=== PATIENT | male | born 1945 | race Caucasian/White ===

== ENCOUNTER 2017-07-28 18:01 | Inpatient (IN) | payer OTHER, MEDICAID ==
[~2017-07-28] VITALS: Ht 175.3 cm; Wt 85.3 kg
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
[2017-07-28 18:46] LABS: BASOPHILS # (AUTO) 0.4 /CMM (0.0-0.2); BASOPHILS % (AUTO) 3.3 % (0.0-2.0); EOSINOPHILS # (AUTO) 0.3 /CMM (0.0-0.7); EOSINOPHILS % (AUTO) 2.4 % (0.0-6.0); HEMATOCRIT 46 % (39-51); HEMOGLOBIN 15.6 g/dL (13.5-17.5); LYMPHOCYTES # (AUTO) 1.5 /CMM (0.8-4.8); LYMPHOCYTES % (AUTO) 13.3 % (20.0-44.0); MEAN CORPUSCULAR HEMOGLOBIN 31 PG (26.0-33.0); MEAN CORPUSCULAR HGB CONC 34 g/dl (31.0-36.0); MEAN CORPUSCULAR VOLUME 90 fL (80-96); MONOCYTES # (AUTO) 0.9 /CMM (0.1-1.30); MONOCYTES % (AUTO) 8.2 % (2.0-12.0); NEUTROPHILS # (AUTO) 8.4 /CMM (1.8-8.9); NEUTROPHILS % (AUTO) 72.8 % (43.0-81.0); PLATELET COUNT (AUTO) 286 /CMM (150-450); RDW COEFFICIENT OF VARIATION 12.3 (11.5-15.0); RED BLOOD CELL COUNT(AUTO) 5.11 MIL/uL (4.5-6.0); WHITE BLOOD COUNT (AUTO) 11.5 K/uL (4.3-11.0)
[2017-07-28] MEDS ORDERED: HALOPERIDOL LACTATE INJ 5 MG/ML VIAL ONE (18:48)
[2017-07-28 18:54] LABS: CALCIUM, SERUM 8.8 mg/dL (8.5-10.1); CARBON DIOXIDE 25 mmol/L (21-32); CHLORIDE 101 mmol/L (98-107); GLUCOSE 113 mg/dL (74-106); POTASSIUM 3.8 mmol/L (3.5-5.1); SODIUM SERUM 136 mmol/L (136-145); UREA NITROGEN, BLOOD 21 mg/dL (7-18)
[2017-07-28 18:54] LABS: APPEARANCE,URINE Clear (CLEAR); BILIRUBIN,URINE Negative (NEGATIVE); BLOOD, URINE Trace-intact Ery/uL (NEGATIVE); COLOR,URINE Yellow (YELLOW); KETONES,URINE Trace (NEGATIVE); LEUKOCYTE ESTERASE ,URINE Negative (NEGATIVE); NITRITE, URINE Positive (NEGATIVE); PH,URINE 5.5 (5.0-8.0); PROTEIN,URINE 30 mg/dl (NEGATIVE); UGLUCOSE Negative (NEGATIVE)
[2017-07-28 19:00] LABS: ALANINE AMINOTRANSFERASE 68 U/L (12-78); ALBUMIN 3.7 g/dL (3.4-5.0); ALKALINE PHOSPHATASE 55 U/L (46-116); ASPARTATE AMINOTRANSFERASE 43 U/L (15-37); BILIRUBIN,DIRECT 0.5 mg/dL (0.0-0.2); BILIRUBIN,TOTAL 1.7 mg/dL (0.2-1.0); TOTAL PROTEIN, SERUM 6.9 g/dL (6.4-8.2)
[2017-07-28] MEDS ORDERED: HALOPERIDOL LACTATE INJ 5 MG/ML VIAL IM ONE (19:00)
[2017-07-28 19:01] LABS: ALCOHOL, BLOOD < 3 mg/dL (0-0)
--- NOTE | 2017-07-28 19:03 | NUR ---
PT NOTED WITH "WORD SALAD". URINE SAMPLE OBTAINED, SENT.
--- NOTE | 2017-07-28 19:13 | NUR ---
PT NOT READY FOR CT SCAN, ER WILL CALL WHEN READY.
[2017-07-28 19:43] LABS: RBC,URINE 0-2 /HPF (0-2); WBC,URINE 0-2 /HPF (0-3)
[2017-07-28 19:46] LABS: BACTERIA,URINE Moderate /HPF (None Seen); SQUAMOUS EPITHELIAL CELL,UR Few /HPF (None Seen)
[2017-07-28 19:47] LABS: MUCUS,URINE Few /LPF (None Seen)
--- NOTE | 2017-07-28 20:00 | NUR ---
CLEANED PT, NOTED WITH POOP ALL OVER.
[2017-07-28] MEDS ORDERED: LORAZEPAM INJ 2 MG/ML VIAL IVP ONE (20:30)
[2017-07-28] MEDS ORDERED: LORAZEPAM INJ 2 MG/ML VIAL ONE (20:39)
--- NOTE | 2017-07-28 20:40 | NUR ---
NOTED BUE HARD STICK, SCARRED. IV ACCESS STARTED ON Brigida PLASCENCIA MD AWARE. MEDICATED ORDERED
--- NOTE | 2017-07-28 21:00 | NUR ---
PT TAKEN TO CT.
--- NOTE | 2017-07-28 22:27 | NUR ---
CALLED ART FOR EVAL
--- NOTE | 2017-07-28 23:54 | NUR ---
Patient is resting comfortably in bed with eyes closed. Easily aroused. VSS
--- NOTE | 2017-07-28 23:56 | NUR ---
REPORT GIVEN TO LARRY CALLAWAY FOR DEEPTI.
--- NOTE | 2017-07-29 00:03 | NUR ---
RECEIVED REPORT FROM DANISH CALLAWAY FOR DEEPTI
--- NOTE | 2017-07-29 00:15 | NUR ---
REPORT GIVEN TO NILTON HANSEN FOR DEEPTI.
--- NOTE | 2017-07-29 00:30 | NUR ---
pt removed iv. Catheter intact and site benign. Pressure and 4x4 applied to site. No bleeding noted.
--- NOTE | 2017-07-29 00:50 | NUR ---
CALLED ART AGAIN FOR EVAL HE STATES LESS THAN 30 MINUTE ETA
--- NOTE | 2017-07-29 01:36 | NUR ---
Art Capilla, STRAIGHT TOOTH GEAR GENERATOR OPERATOR, at bedside to evaluate patient.
--- NOTE | 2017-07-29 02:55 | NUR ---
PER ART, BUSINESS OFFICE SPECIALIST PT PLACED ON 5150 HOLD.
--- NOTE | 2017-07-29 02:58 | NUR ---
PT ASSIGNED TO [facility] 215-A
[2017-07-29] MEDS ORDERED: NICO1PAT10 TP (03:08)
[2017-07-29] MEDS ORDERED: CARV25TA PO (03:08)
[2017-07-29] MEDS ORDERED: GABA600T PO (03:08)
[2017-07-29] MEDS ORDERED: BUSP10TA35 PO (03:08)
[2017-07-29] MEDS ORDERED: CLON0.5T PO (03:08)
[2017-07-29] MEDS ORDERED: NIFE60TA2 PO (03:08)
[2017-07-29] MEDS ORDERED: ATOR40TA PO (03:08)
--- NOTE | 2017-07-29 03:13 | NUR ---
CALLED DR. FERNANDO MD PAGED. WAITING FOR CALL BACK
[2017-07-29 03:55] VITALS: BP 144/64
[2017-07-29] MEDS ORDERED: TEMAZEPAM 7.5 MG CAPSULE PO PRN (04:00)
[2017-07-29] MEDS ORDERED: MAGNESIUM HYDROXIDE 30 ML UDC PO PRN (04:00)
[2017-07-29] MEDS ORDERED: ACETAMINOPHEN 325 MG TABLET PO PRN ×2 (04:00→09:30)
[2017-07-29] MEDS ORDERED: MAG HYDROX/AL HYDROX/SIMETH 30 ML UDC PO PRN (04:00)
[2017-07-29] MEDS ORDERED: GABAPENTIN 300 MG CAPSULE PO SCH (05:00)
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
[2017-07-29 06:54] LABS: CHOLESTEROL 113 mg/dL (<200); HDL CHOLESTEROL 44 mg/dL (40-60); LDL 54 mg/dL (0-99); TRIGLYCERIDES 114 mg/dL (30-150)
[2017-07-29] MEDS ORDERED: GABA-534 PO (08:43)
[2017-07-29] MEDS ORDERED: ACET-868 PO (08:43)
[2017-07-29] MEDS ORDERED: ESCI5TAB PO (08:43)
[2017-07-29] MEDS ORDERED: BISA10SU8 RC (08:43)
[2017-07-29] MEDS ORDERED: QUET100T PO (08:43)
[2017-07-29] MEDS ORDERED: TRAZ-144 PO (08:43)
[2017-07-29 09:00] VITALS: BP 161/85
--- NOTE | 2017-07-29 09:11 | NUR ---
GPS RN: CALLED DR. KING, RECONCILED MEDS, FAXED TO THE PHARMACY AND CALLED THE PHARMACY TO F/U AND EXPEDITE PATIENT'S MEDS, DUE TO BP 161/85, HR 101, SPOKE WITH PHARMACIST PRICILLA.
[2017-07-29] MEDS ORDERED: BISACODYL SUPP (10 MG) 10 MG/SUPP.RECT SUPP.RECT RC PRN (09:30)
[2017-07-29] MEDS: CARVEDILOL 12.5 MG TABLET PO SCH ×2 (09:34→21:26)
[2017-07-29] MEDS: NIFEdipine XL 60 MG TAB PO SCH (10:02)
--- NOTE | 2017-07-29 10:59 | NUR ---
UR REVIEW: DELISA faxed over clinicals to Paul with [facility], to fax# [phone], AUTHORIZATION#[id number]. DELISA then called Paul and left a voicemail confirming that she faxed over clinicals and informed Paul that the psychiatric History and Physical was unavailable. Once it is available, social contact worker will fax it over as well.
--- NOTE | 2017-07-29 11:59 | NUR ---
PATIENT IS VERY RESTLESS, SITTING IN THE CONCETTA CHAIR IN THE DINING ROOM, CONSTANTLY MOVING LEGS AND FLAILING ARMS, HARD TO REDIRECT DUE TO CONFUSION AND DISORIENTATION. PROVIDED SNACKS AND OFFERED FLUIDS, TOLERATED WELL. PATIENT IS ALERT, HOWEVER, DISORIENTED AND HARD TO REDIRECT. NO S/S OF PHYSICAL DISTRESS OR PAIN. SAFETY PRECAUTIONS OBSERVED AT ALL TIMES, CONTINUE TO MONITOR THE PATIENT.
[2017-07-29] MEDS: GABAPENTIN 300 MG CAPSULE PO SCH ×3 (12:50→21:25)
[2017-07-29] MEDS: busPIRone 5 MG TABLET PO SCH ×2 (14:30→16:51)
[2017-07-29] MEDS: Z GUARD REMEDY 2 OZ OINT TP SCH (14:58)
[2017-07-29 16:07] VITALS: BP 165/87
--- NOTE | 2017-07-29 16:16 | NUR ---
PATIENT IS GETTING OUT OF THE BED, UNSTEADY, BUMPING THE FURNITURE, VERY CONFUSED AND RESTLESS, UNABLE TO REDIRECT. BED ALARM IS ON, BED IN A LOW POSITION AND LOCKED, SR ARE UP X3 FOR SAFETY. CALLED DR. KING AND OBTAINED AN ORDER FOR 1:1 SITTER. CHAINSTITCH BINDER NOTIFIED. WILL CONTINUE TO MONITOR THE PATIENT.
[2017-07-29] MEDS: QUETIAPINE FUMARATE 100 MG TABLET PO SCH (16:51)
[2017-07-29] MEDS: ATORVASTATIN 10 MG TABLET PO SCH (17:04)
[2017-07-29] MEDS ORDERED: ATORVASTATIN 40 MG TABLET PO SCH (18:00)
[2017-07-29 18:41] VITALS: BP 141/75
[2017-07-29 20:22] VITALS: BP 150/83
[2017-07-29] MEDS: TRAZODONE 50 MG TABLET PO SCH (21:25)
[2017-07-30] MEDS: LORAZEPAM 0.5 MG TABLET PO PRN (02:08)
[2017-07-30 08:06] VITALS: BP 147/71
[2017-07-30] MEDS: busPIRone 5 MG TABLET PO SCH ×2 (09:13→17:28)
[2017-07-30] MEDS: NIFEdipine XL 60 MG TAB PO SCH (09:13)
[2017-07-30] MEDS: QUETIAPINE FUMARATE 100 MG TABLET PO SCH ×2 (09:13→17:28)
[2017-07-30] MEDS: GABAPENTIN 300 MG CAPSULE PO SCH ×4 (09:13→21:00)
[2017-07-30] MEDS: ESCITALOPRAM OXALATE (10 MG) 10 MG TABLET PO SCH (09:13)
[2017-07-30] MEDS: ATORVASTATIN 10 MG TABLET PO SCH (09:13)
[2017-07-30] MEDS: Z GUARD REMEDY 2 OZ OINT TP SCH (09:14)
[2017-07-30] MEDS: CARVEDILOL 12.5 MG TABLET PO SCH ×2 (09:17→21:00)
--- NOTE | 2017-07-30 10:50 | NUR ---
SW was contacted by pt's tikpht-hx-hry, Haydee Toscano [phone]. Haydee stated that pt's brother is his DPOA. Haydee stated that they believed [facility] but stated that any facility deemed suitable by doctors was okay with the family and with DPOA. Haydee stated that they want to sign a DNR. DELISA stated that she will look into it. DELISA consulted with nurses and obtained the form. DELISA called Haydee and reached her voicemail. DELISA left voicemail stating that she had some questions for the family and had info about the DNR. DELISA urged Haydee to call her back. DELISA will follow up with family.
--- NOTE | 2017-07-30 10:55 | NUR ---
SW attempted to conducted assessment but patient was nonsensical. SW attempted to reach family, , but received their voicemail. SW requested a call back. SW attempted to conduct the substance use assessment but was unable to do so given patient's low level of function. DELISA will make a second attempt later in the day or on Wednesday, as was advised by her supervisor meter shop.
--- NOTE | 2017-07-30 11:32 | NUR ---
WOUND CARE CONSULT PATIENT SEEN AND SKIN INTEGRITY ASSESSMENT DONE. PATIENT NOW WITH SITTER AT THE BEDSIDE FOR SAFETY, PATIENT CONFUSED. PATIENT WITH CURRENT ROMAN AT 19, ABLE TO MOVE ALL EXTREMITIES. RECOMMENDATIONS MADE FOR SKIN CARE AND FOR TREATMENT, MD IN AGREEMENT WITH TREATMENT PLAN WELL CAREPLAN. ALL DISCUSSED WITH NURSING AT THE BEDSIDE. Addendum: 07/30/17 at 1135 by JEREMY REYES WNDNU Amended: Links added.
--- NOTE | 2017-07-30 11:35 | NUR ---
UR REVIEW: DELISA faxed over psychiatric History and Physical to Paul with [facility], to fax# [phone], AUTHORIZATION#[id number]. DELISA called Paul and left a message to confirm the fax and asked Paul to call her back as DELISA had a question regarding approval.
[2017-07-30] MEDS: NEOMY SULF/BACITRAC ZN/POLY 15 GM TUBE TP SCH (12:43)
--- NOTE | 2017-07-30 12:43 | NUR ---
DELISA contacted Apoorva, an zoning administrator at [facility] [phone] who informed social welfare administrator that the facility will absolutely not be taking back patient due to his aggressive behavior. DELISA called Paul with [facility], [insurance underwriting assistant] who stated that there are a couple of other facilities he will look into for potential placement that will be approved by the insurance. DELISA will follow up with Paul on Wednesday.
--- NOTE | 2017-07-30 12:52 | NUR ---
PER PATIENT'S BROTHER (DPOA) PATIENT IS EVERYDAY SMOKER, ("CHAIN SMOKER"). NICOTINE PATCH ORDERED.
[2017-07-30] MEDS: NICOTINE PATCH (21MG) 21 MG PATCH.TD24 TD SCH (14:01)
--- NOTE | 2017-07-30 14:14 | NUR ---
DELISA spoke with patient's clfxdg-fz-car and with patient's brother, Kee, and informed them that it will be best to sign the POLST form in person. Both of them agreed and stated that they will be by around 6-8pm to sign the form and to visit with patient. DELISA explained the insurance policy to Kee and informed him that the SNF has to be approved by insurance because it is an HMO.
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
--- NOTE | 2017-07-30 15:02 | NUR ---
PLEASE NOTE- NO DPOA: Upon having a lengthy conversation with the patient's brother, it became clear that brother is not DPOA. Brother stated that he had no court documentation and stated that he wasn't sure if he was DPOA. Brother stated that he was the "next of kin" and assumed that it made him the DPOA. Dyno Technician explained that this was not the case. Addendum: 07/30/17 at 1504 by VIOLETTA HERCULES There is confusion in patient's family about decision-making and facilities. DELISA will follow up and provide them with updates.
--- NOTE | 2017-07-30 15:46 | NUR ---
DELISA spoke with Paul with [facility], who stated that he will fax over a list of contracted SNFs to social work program coordinator by Wednesday. Dr. Senior also called social work program coordinator and informed her that he heard form [place] insurance and stated that he wrote an order for the SNF [acute care]. DELISA will follow up and will arrange discharge for contracted SNF facilities.
[2017-07-30 16:00] VITALS: BP 119/67
--- NOTE | 2017-07-30 16:18 | NUR ---
RN-CO: AVE (DELISA) MADE AWARE REGARDING DR MICHEL'S ORDER TO INITIATE DISCHARGE PLANNING OF PATIENT TO SNF.
--- NOTE | 2017-07-30 16:51 | NUR ---
DELISA faxed over inquiry to [facility], Address: [address] [place], [place] [address]Rumvn: to admissions. Fax number: [phone]. DELISA Orozco will follow up on Wednesday.
--- NOTE | 2017-07-30 16:55 | NUR ---
UR REVIEW: DELISA faxed over progress notes to Paul with [facility], to fax# [phone], AUTHORIZATION#[id number]
[2017-07-30 20:00] VITALS: BP 125/63
[2017-07-30] MEDS: TRAZODONE 50 MG TABLET PO SCH (22:00)
--- NOTE | 2017-07-31 07:22 | NUR ---
refused meds last night,slept most of night
[2017-07-31 08:00] VITALS: BP 139/55
[2017-07-31] MEDS: NICOTINE PATCH (21MG) 21 MG PATCH.TD24 TD SCH (10:05)
[2017-07-31] MEDS: GABAPENTIN 300 MG CAPSULE PO SCH ×4 (10:05→21:45)
[2017-07-31] MEDS: busPIRone 5 MG TABLET PO SCH ×2 (10:05→17:57)
[2017-07-31] MEDS: CARVEDILOL 12.5 MG TABLET PO SCH ×2 (10:06→21:47)
[2017-07-31] MEDS: ATORVASTATIN 10 MG TABLET PO SCH (10:06)
[2017-07-31] MEDS: ESCITALOPRAM OXALATE (10 MG) 10 MG TABLET PO SCH (10:06)
[2017-07-31] MEDS: QUETIAPINE FUMARATE 100 MG TABLET PO SCH ×2 (10:06→17:57)
[2017-07-31] MEDS: NIFEdipine XL 60 MG TAB PO SCH (10:11)
[2017-07-31] MEDS: Z GUARD REMEDY 2 OZ OINT TP SCH (10:15)
[2017-07-31] MEDS: NEOMY SULF/BACITRAC ZN/POLY 15 GM TUBE TP SCH (10:17)
[2017-07-31 16:00] VITALS: BP 124/54
[2017-07-31 20:00] VITALS: BP 142/70
[2017-07-31] MEDS: TRAZODONE 50 MG TABLET PO SCH (21:45)
--- NOTE | 2017-07-31 23:51 | NUR ---
Pt has been confused & fragmented but compliant with care w/o any promptings.
[2017-08-01 08:02] VITALS: BP 130/71
[2017-08-01] MEDS: NIFEdipine XL 60 MG TAB PO SCH (08:04)
[2017-08-01] MEDS: busPIRone 5 MG TABLET PO SCH ×2 (08:04→16:47)
[2017-08-01] MEDS: CARVEDILOL 12.5 MG TABLET PO SCH ×2 (08:05→21:27)
[2017-08-01] MEDS: ESCITALOPRAM OXALATE (10 MG) 10 MG TABLET PO SCH (08:05)
[2017-08-01] MEDS: ATORVASTATIN 10 MG TABLET PO SCH (08:05)
[2017-08-01] MEDS: GABAPENTIN 300 MG CAPSULE PO SCH ×4 (08:06→21:26)
[2017-08-01] MEDS: NICOTINE PATCH (21MG) 21 MG PATCH.TD24 TD SCH (08:08)
[2017-08-01] MEDS: QUETIAPINE FUMARATE 100 MG TABLET PO SCH ×2 (08:08→16:46)
[2017-08-01] MEDS: Z GUARD REMEDY 2 OZ OINT TP SCH (08:17)
[2017-08-01] MEDS: NEOMY SULF/BACITRAC ZN/POLY 15 GM TUBE TP SCH (08:17)
[2017-08-01 12:43] LABS: ALBUMIN 3.7 g/dL (3.4-5.0); BILIRUBIN,DIRECT 0.3 mg/dL (0.0-0.2); BILIRUBIN,TOTAL 1.6 mg/dL (0.2-1.0); TOTAL PROTEIN, SERUM 7.5 g/dL (6.4-8.2)
[2017-08-01 16:00] VITALS: BP 129/59
[2017-08-01 19:53] VITALS: BP 143/74
--- NOTE | 2017-08-01 20:00 | NUR ---
Resting quietly in bed no distress noted or voiced.
[2017-08-01] MEDS: TRAZODONE 50 MG TABLET PO SCH (21:26)
[2017-08-01] MEDS: LORAZEPAM 0.5 MG TABLET PO PRN (21:46)
--- NOTE | 2017-08-02 06:45 | NUR ---
refused to allow to take pictures, of skin
[2017-08-02 08:00] VITALS: BP 136/73
[2017-08-02] MEDS: NICOTINE PATCH (21MG) 21 MG PATCH.TD24 TD SCH (08:12)
[2017-08-02] MEDS: CARVEDILOL 12.5 MG TABLET PO SCH ×2 (08:12→21:06)
[2017-08-02] MEDS: QUETIAPINE FUMARATE 100 MG TABLET PO SCH ×2 (08:13→17:01)
[2017-08-02] MEDS: busPIRone 5 MG TABLET PO SCH ×2 (08:13→17:11)
[2017-08-02] MEDS: ATORVASTATIN 10 MG TABLET PO SCH (08:13)
[2017-08-02] MEDS: ESCITALOPRAM OXALATE (10 MG) 10 MG TABLET PO SCH (08:13)
[2017-08-02] MEDS: GABAPENTIN 300 MG CAPSULE PO SCH ×4 (08:13→21:05)
[2017-08-02] MEDS: NIFEdipine XL 60 MG TAB PO SCH (08:15)
[2017-08-02] MEDS: NEOMY SULF/BACITRAC ZN/POLY 15 GM TUBE TP SCH (08:15)
[2017-08-02] MEDS: Z GUARD REMEDY 2 OZ OINT TP SCH (08:39)
--- NOTE | 2017-08-02 12:50 | NUR ---
Open Winder, Pam Hwang spoke to Ken Bro, Supervisor Powdered Sugar from [facility], who stated patient's inquiry was being reviewed and pending a decision. Mr. Bro stated that he would be calling back with a response once he spoke to the lemon picker. Open Winder to follow up.
--- NOTE | 2017-08-02 13:07 | NUR ---
DELISA, received a call from Paul Wang (Insurance) inquiring about an update re: patient. Per his request, inquiry was faxed to him at [phone]. DELISA confirmed with Paul to ensure fax was received.
[2017-08-02 16:00] VITALS: BP 141/76
--- NOTE | 2017-08-02 18:38 | NUR ---
[id number]: GAVE DULCOLAX 10 MG PO DUE TO CONSTIPATION UPON PT REQUEST AND WILL CONTINUE TO MONITOR FOR EFFECTIVENESS OF MEDICATION
[2017-08-02 20:36] VITALS: BP 139/75
[2017-08-02] MEDS: TRAZODONE 50 MG TABLET PO SCH (21:24)
[2017-08-03 08:13] VITALS: BP 129/54
[2017-08-03] MEDS: ATORVASTATIN 10 MG TABLET PO SCH (08:29)
[2017-08-03] MEDS: NICOTINE PATCH (21MG) 21 MG PATCH.TD24 TD SCH (08:29)
[2017-08-03] MEDS: busPIRone 5 MG TABLET PO SCH ×2 (08:30→16:16)
[2017-08-03] MEDS: GABAPENTIN 300 MG CAPSULE PO SCH ×4 (08:31→21:19)
[2017-08-03] MEDS: ESCITALOPRAM OXALATE (10 MG) 10 MG TABLET PO SCH (08:32)
[2017-08-03] MEDS: QUETIAPINE FUMARATE 100 MG TABLET PO SCH ×2 (08:32→16:16)
[2017-08-03] MEDS: NIFEdipine XL 60 MG TAB PO SCH (08:36)
[2017-08-03] MEDS: CARVEDILOL 12.5 MG TABLET PO SCH ×2 (08:37→21:18)
[2017-08-03] MEDS: Z GUARD REMEDY 2 OZ OINT TP SCH (08:40)
[2017-08-03] MEDS: NEOMY SULF/BACITRAC ZN/POLY 15 GM TUBE TP SCH (08:41)
[2017-08-03] MEDS: BOOST PLUS FOOD-CHOCLATE 237 ML BOX PO SCH ×2 (13:17→16:21)
--- NOTE | 2017-08-03 15:27 | NUR ---
DELISA heard from Ken in Admissions from [facility], who informed DELISA that the patient was declined placement at this time. However, Ken stated that the service administrator, Bella, would consider re-evaluating the case and patient if no other placement is found for patient. DELISA will follow up.
--- NOTE | 2017-08-03 15:28 | NUR ---
DELISA faxed over an inquiry to Nurys from Admissions at [facility], , Fax number [phone]. DELISA called and spoke to Nurys, informing her of the inquiry. DELISA will follow up.
--- NOTE | 2017-08-03 15:38 | NUR ---
DELISA returned Daniel Quiroz's [insurance] voicemail regarding patient at [phone]. Art stated that he was with a patient and will call ironworker foreman back to discuss case.
--- NOTE | 2017-08-03 15:55 | NUR ---
UR REVIEW: DELISA faxed over updated clinicals with doctor's order to discharge to SNF to [place] [facility], to fax# [phone], AUTHORIZATION#[id number]
[2017-08-03 15:58] VITALS: BP 161/78
--- NOTE | 2017-08-03 16:23 | NUR ---
DELISA faxed over inquiry to Admissions at [facility], [address] [place], [place] [phone], . DELISA will follow up.
[2017-08-03] MEDS ORDERED: BISACODYL (5 MG) 5 MG TABLET.DR PO ONE (16:30)
--- NOTE | 2017-08-03 19:55 | NUR ---
GPS/RN NOTE: BROTHER VISITS AT HE BEDSIDE
[2017-08-03 20:23] VITALS: BP 132/67
[2017-08-03] MEDS: TRAZODONE 50 MG TABLET PO SCH (21:20)
--- NOTE | 2017-08-03 21:22 | NUR ---
GPS/RN NOTE: PATIENT ASLEEP, TRIED TO WAKE HIM UP, WILL TRY IN THE NEXT HOUR.
[2017-08-04] MEDS: GABAPENTIN 300 MG CAPSULE PO SCH ×4 (08:19→20:23)
[2017-08-04] MEDS: busPIRone 5 MG TABLET PO SCH ×2 (08:19→17:06)
[2017-08-04] MEDS: NICOTINE PATCH (21MG) 21 MG PATCH.TD24 TD SCH (08:19)
[2017-08-04] MEDS: ESCITALOPRAM OXALATE (10 MG) 10 MG TABLET PO SCH (08:19)
[2017-08-04] MEDS: QUETIAPINE FUMARATE 100 MG TABLET PO SCH ×3 (08:19→20:22)
[2017-08-04] MEDS: BOOST PLUS FOOD-CHOCLATE 237 ML BOX PO SCH ×2 (08:20→17:19)
[2017-08-04] MEDS: CARVEDILOL 12.5 MG TABLET PO SCH ×2 (08:20→20:22)
[2017-08-04] MEDS: NEOMY SULF/BACITRAC ZN/POLY 15 GM TUBE TP SCH (08:21)
[2017-08-04] MEDS: Z GUARD REMEDY 2 OZ OINT TP SCH (08:21)
[2017-08-04] MEDS: NIFEdipine XL 60 MG TAB PO SCH (08:22)
[2017-08-04 08:51] VITALS: BP 138/77
[2017-08-04] MEDS: ATORVASTATIN 10 MG TABLET PO SCH (09:18)
--- NOTE | 2017-08-04 10:33 | NUR ---
DELISA called Admissions at [facility], and spoke with Michelle who confirmed that they received the inquiry but stated that [facility] will be the one to call DELISA back. DELISA left detailed contact information.
--- NOTE | 2017-08-04 10:36 | NUR ---
DELISA followed up with Admissions at [facility], [address] [place], [place] [phone] who informed her that there are no beds available anymore and that patient was no accepted.
--- NOTE | 2017-08-04 10:44 | NUR ---
DELISA spoke to the traffic administrator, Bella, from [facility], who informed SW that they will have to come in and physically see the patient before taking him. He stated that he will not be able to do that until next week. DELISA stated that she will continue to follow up with more facilities but will keep in touch.
--- NOTE | 2017-08-04 15:20 | NUR ---
SW attempted twice to get in contact with patient's brother Kee and Kee's Haydee at [phone]. SW left voicemail urging family to call back to discuss discharge plan. SW provided contact information.
--- NOTE | 2017-08-04 15:24 | NUR ---
DELISA followed up with Paul with [facility], who stated that there is a facility that is willing to take the patient, but they are waiting for insurance approval for a sitter. Paul stated that he is working on it and that he will have confirmation soon. Paul stated that they are making progress and will have patient placed by the end of the week. DELISA stated that she is also following up with facilities and that she will touch base with Paul soon.
[2017-08-04 16:47] VITALS: BP 131/68
--- NOTE | 2017-08-04 16:51 | NUR ---
DELISA followed up with Paul and Wandy [covering Paul] from [facility] [phone] multiple times throughout the day. Paul informed DELISA that he is still following up with the facilities. DELISA informed Paul that one of the facilities was a congregated living, which was against doctor's orders for a SNF. DELISA informed Wandy that she was following up with Ani from [facility], . When speaking with Ani, DELISA was informed that they will take patient in for short-term, with as many days as approved by insurance. DELISA then informed pt's family [phone] about this and stressed that options were limited. Family seemed to be confused about insurance companies/facilities so DELISA advised them to get in direct contact with the insurance and stated that she had provided them with contact information before. Family said that they will contact oncology social worker in the morning. DELISA informed Kaylai from [facility] that the patient is a possibility for tomorrow and Ani asked DELISA to confirm in the morning. DELISA will follow up with Nurys Miller and pt's family in the morning and will make arrangements for discharge as necessary.
--- NOTE | 2017-08-04 17:07 | NUR ---
DELISA faxed over two more inquiries. One was for [facility], with fax number [phone]. The other was for [facility] [phone] with fax number [phone]. DELISA will follow up in the morning.
[2017-08-04 20:06] VITALS: BP 157/77
[2017-08-04] MEDS: LORAZEPAM 0.5 MG TABLET PO PRN (20:23)
[2017-08-04] MEDS: TRAZODONE 50 MG TABLET PO SCH (21:08)
[2017-08-05 08:22] VITALS: BP 144/77
[2017-08-05] MEDS: busPIRone 5 MG TABLET PO SCH ×2 (08:35→17:25)
[2017-08-05] MEDS: ESCITALOPRAM OXALATE (10 MG) 10 MG TABLET PO SCH (08:35)
[2017-08-05] MEDS: NICOTINE PATCH (21MG) 21 MG PATCH.TD24 TD SCH (08:35)
[2017-08-05] MEDS: ATORVASTATIN 10 MG TABLET PO SCH (08:36)
[2017-08-05] MEDS: CARVEDILOL 12.5 MG TABLET PO SCH ×2 (08:36→21:00)
[2017-08-05] MEDS: GABAPENTIN 300 MG CAPSULE PO SCH ×4 (08:36→21:00)
[2017-08-05] MEDS: NIFEdipine XL 60 MG TAB PO SCH (08:49)
[2017-08-05] MEDS: NEOMY SULF/BACITRAC ZN/POLY 15 GM TUBE TP SCH (08:49)
[2017-08-05] MEDS: Z GUARD REMEDY 2 OZ OINT TP SCH (08:50)
[2017-08-05] MEDS ORDERED: QUETIAPINE FUMARATE 100 MG TABLET PO ONE (09:00)
--- NOTE | 2017-08-05 09:00 | NUR ---
GPS RN: PER eMAR RECORD, SEROQUEL SCHEDULED FOR 08/05/17 0900 WAS ADMINISTERED ON 08/04/17 AT 2021. THE ORDER IS SEROQUEL 100MG BID. DR. MICHEL NOTIFIED AND OK'D TO ADMINISTER SEROQUEL 100MG AT 0900, ONE TIME ORDER RECEIVED AND CARRIED OUT. PATIENT IS ALERT AWAKE, NOT IN ANY DISTRESS, VS STABLE.
[2017-08-05] MEDS: BOOST PLUS FOOD-CHOCLATE 237 ML BOX PO SCH ×2 (09:04→17:26)
--- NOTE | 2017-08-05 09:14 | NUR ---
DELISA faxed over additional clinicals [PT again, OT, Speech Therapy] to Paul from [facility] [phone]. DELISA then called [facility] who confirmed that he received them and faxed them over to his SNF medical videographer. Paul stated that he would like DELISA to hold off on confirming with [facility] because he would like to check with his medical directors and see if patient can be placed in other SNFs. Paul stated that he would confirm by today and then patient will be good to go to a SNF. DELISA will then inform family and update them.
--- NOTE | 2017-08-05 11:39 | NUR ---
DELISA spoke with patient's nephew, Diogo [phone] who thanked health and social care teacher for all her help. He stated that the family was feeling a little overwhelmed and confused. SW provided updates on patient's status and provided nephew with insurance contact information. SW explained that she can only look at SNFs that are approved by patient's insurance and is therefore limited as to what she can do in terms of placement. Nephew thanked DELISA and stated that he will be in touch.
--- NOTE | 2017-08-05 14:37 | NUR ---
Patient is ready for discharge and DELISA was able to work with Paul from [facility] [phone] to secure a [place]-approved SNF, [facility]. However, patient's nephew [phone] and family, stated that they would like to appeal the discharge. Patient is in contact with her forest supervisor as well as Daniel Quiroz from [place], regarding a letter of denial or possible authorization of more days. Once confirmed and if applicable, DELISA will serve family with letter of denial. In the meantime, DELISA will continue to search for appropriate facilities.
--- NOTE | 2017-08-05 14:41 | NUR ---
Patient's nephew [phone] stated that he does not want uncle in convalescent facility, [facility]. follow up with [facility] [phone] and was informed by admissions that they had misplaced the face sheet. diversified crops farmworker re-faxed the face sheet to fax number [phone].
--- NOTE | 2017-08-05 15:33 | NUR ---
DELISA attempted several times to get in touch with Daniel Quiroz from [facility] [phone]. Daniel Quiroz's voicemail box was full and foster care social worker was unable to leave him a message with the latest update: that the pt's family was appealing the discharge. SW then send a message to Daniel's cellphone informing him that patient's family was appealing the discharge and asked him to fax over a letter of denial to fax number [phone]. die lay out worker informed him that either the letter needs to be sent or more days need to be authorized. DELISA then left a voicemail for Paul from [facility] [phone] asking if he was aware of any information regarding approval or denial of the letter. DELISA will follow up. DELISA then called Helga Zarina, patient's nephew at [phone]. DELISA informed Helga that a letter of denial has to be served and signed by family. DELISA told Helga that, upon supervisor electric motor testing's advisement, the letter cannot be emailed as it may be a breach of confidentiality. DELISA advised Helga to sign the letter in person. DELISA then informed Helga that the family may be financially responsible for the patient's stay which is approximately $1,000/day. Under the advisement of supervisor electric motor testing, DELISA reviewed and edited the letter of denial and will leave it with the charge nurse so that family may receive and sign the letter during visiting hours, 6pm-8pm. If foster care social worker receives the letter of denial directly from the HMO [Daniel Quiroz] then she will leave that letter to be reviewed and signed by family instead. If foster care social worker hears that insurance company approved patient for more days, then foster care social worker will let family know.
--- NOTE | 2017-08-05 15:46 | NUR ---
DELISA heard back from Admissions from [facility] [phone] and was informed that patient was denied because he was considered to be a long-term risk.
--- NOTE | 2017-08-05 15:49 | NUR ---
Please note that patient's family [nephew, brother, lyxfki-qo-goa] stated that they did not want facilities that were too far away [ie [place], [place], [place], [place]], did not want facilities that were convalescent and preferred unlocked units.
[2017-08-05 16:00] VITALS: BP 149/62
--- NOTE | 2017-08-05 17:15 | NUR ---
DELISA called Helga Srinivasan [phone] and informed him that the family needs to file an appeal with [facility] first. Helga stated that they had already done that and informed hospital social worker that he has all of their contact information. DELISA then stated that the family had to come in and sign paperwork [letter of denial and their rights in the appeal]. DELISA left the paperwork with charge nurse, Norbert, and informed Helga of that. Helga state that the family will come by during visiting hours 6pm-8pm to sign the paperwork. DELISA stated that, upon petroleum inspector supervisor's advise, she will wait for [facility] to contact her in the morning and will fax over all necessary documents to them. DELISA reiterated that there is a possibility that the family will be financially responsible starting today.
--- NOTE | 2017-08-05 17:21 | NUR ---
DELISA faxed over inquiries to admissions in [facility], fax number [phone] and [facility] fax number [phone].
[2017-08-05] MEDS: QUETIAPINE FUMARATE 100 MG TABLET PO SCH (17:25)
--- NOTE | 2017-08-05 17:36 | NUR ---
DR. MICHEL GAVE AN ORDER TO D/C HOLD AND D/C TO [facility].
[2017-08-05 20:00] VITALS: BP 158/80
[2017-08-05] MEDS: TRAZODONE 50 MG TABLET PO SCH (21:26)
[2017-08-06 08:00] VITALS: BP 138/63
[2017-08-06] MEDS: NEOMY SULF/BACITRAC ZN/POLY 15 GM TUBE TP SCH (08:39)
[2017-08-06] MEDS: NICOTINE PATCH (21MG) 21 MG PATCH.TD24 TD SCH (08:39)
[2017-08-06] MEDS: GABAPENTIN 300 MG CAPSULE PO SCH ×4 (08:40→21:07)
[2017-08-06] MEDS: ESCITALOPRAM OXALATE (10 MG) 10 MG TABLET PO SCH (08:40)
[2017-08-06] MEDS: QUETIAPINE FUMARATE 100 MG TABLET PO SCH ×2 (08:40→16:02)
[2017-08-06] MEDS: ATORVASTATIN 10 MG TABLET PO SCH (08:40)
[2017-08-06] MEDS: busPIRone 5 MG TABLET PO SCH ×2 (08:40→16:05)
[2017-08-06] MEDS: NIFEdipine XL 60 MG TAB PO SCH (08:41)
[2017-08-06] MEDS: CARVEDILOL 12.5 MG TABLET PO SCH ×2 (08:41→21:08)
[2017-08-06] MEDS: Z GUARD REMEDY 2 OZ OINT TP SCH (08:47)
[2017-08-06] MEDS: BOOST PLUS FOOD-CHOCLATE 237 ML BOX PO SCH ×2 (08:48→16:17)
--- NOTE | 2017-08-06 09:31 | NUR ---
DELISA faxed over required packet to [facility], to fax number [phone]. Please note that the fax machine was unable to send the packet as whole and it was initially sent in four parts. However, DELISA then used another fax machine and was able to send the packet as a whole. DELISA called [facility] and spoke to Alejandra. DELISA informed her that there may be duplicates of the packet. Alejandra stated that she noted it in the case file. DELISA is currently waiting for confirmation of fax to print out. DELISA will follow up in a half hour if no confirmation is printed.
--- NOTE | 2017-08-06 09:50 | NUR ---
DELISA received confirmation that the entire packet was successfully transmitted to [facility] to fax number [phone] regarding - AP. DELISA then called [facility] at their help line [phone] and spoke with Renea. DELISA confirmed that there were a total of 68 pages that were sent over and again stated that there may be duplicates due to a malfunction of the fax machine.
--- NOTE | 2017-08-06 10:14 | NUR ---
DELISA attempted to get in touch with Nataliia Breanna from [facility] [phone]. DELISA left a voicemail stating that she was seeking clarification about a fax that she received from Nataliia in the morning. DELISA urged Nataliia to call her back and left detailed contact information.
--- NOTE | 2017-08-06 10:22 | NUR ---
DELISA faxed over a confirmation of the fax sent to [facility] to Nataliia Carlos from [facility] [phone] at fax number [phone].
--- NOTE | 2017-08-06 10:28 | NUR ---
SW was approached by patient's ofzslc-te-xjm Haydee Dorcas [phone] while in her office. Haydee handed DELISA a letter from the patient's brother addressed to [facility], which aired their grievances and stated demands for patient's discharge. At the advise of her hotel or motel cleaning supervisor, DELISA referred the letter to her. DELISA also placed the letter into the patient's chart.
--- NOTE | 2017-08-06 10:38 | NUR ---
DELISA followed up with Perla in admissions from [facility] [phone] who informed SW that the facility was declining the patient due to behavioral problems. Perla stated that the facility would be unable to provide the patient with care that he needs. DELISA then followed up with [facility] and spoke with Becca in admissions, who informed social media content specialist that there were no beds available in the facility.
--- NOTE | 2017-08-06 10:41 | NUR ---
DELISA faxed over an inquiry to Admission in [facility], to fax number [phone]. DELISA will follow up.
--- NOTE | 2017-08-06 11:02 | NUR ---
DELISA was initially contacted by pt's uiqual-tb-fvr Haydee Toscano [phone] on July 31, 2017. The family appeared to be slightly confused by the situation, but social media sr strategy manager did her best to update family. DELISA explained that pt's medicare was managed by Anna, an HMO and that there was a limit as to what facilities SW can look into. Haydee stated that any facility deemed suitable by doctors was okay with the family. There was also some misinformation regarding pt's brother, Kee, being DPOA. SW made sure to call back and speak to, both, Haydee and Kee. SW asked if there were any legal paperwork/documents/court orders and family stated that there were none. Kee stated that he was next-of-kin and DELISA informed him that it was not the same thing and that next-of-kin was not automatically considered a DPOA. DELISA stated that paperwork had to be provided for that. SW provided family with her direct line for any further concerns and questions. DELISA also worked with family to sign the DNR [POLST] form. SW left it with the charge nurse and family came during visiting hours 6-8pm and signed the form, which was then left in patient's chart. DELISA then informed family that patient was accepted into [facility] and that other facilities that DELISA and insurance faxed were either unwilling to accept patient due to behavioral problems or had no bed availability. The family made no objections at this time. DELISA was then contacted by patient's nephew Helga [phone]. Helga seemed confused, but social media sr strategy manager explained that there was a limited number of facilities that she can look into and that many were hesitant to take the patient due to past behavioral problems as well as the insurance he is managed by. Helga stated that there is a lot going on and DELISA stated that she has been in contact with family [Kee and Haydee] since July 31, providing them with as many updates as she could. DELISA was then contacted by Helga several times and he stated that he conducted some research on the facility and that he had concerns. He then informed SW that the family would be appealing discharge. DELISA spoke to Helga numerously on 08/05/17 to follow up and to inform him that all the forms that were necessary would be with the charge nurse during visiting hours. DELISA was then approached by [id number] Haydee on 08/06 who handed DELISA the grievance letter.
--- NOTE | 2017-08-06 11:17 | NUR ---
Please note that SW was informed by Nurys from admissions at [facility], that patient would be receiving PT and OT services. This was also confirmed by Paul from [facility], .
--- NOTE | 2017-08-06 11:20 | NUR ---
DELISA spoke to Araceli in admissions at [facility], . DELISA was following up regarding Mr. Blanco [business services administrator] coming in to assess the patient in the event that there were complications with placement. Araceli informed DELISA that Mr. Blanco was out of office today and that he will only be able to follow up on Wednesday. Araceli stated that she had no further information regarding patient/placement/assessment. Addendum: 08/06/17 at 1137 by VIOLETTA HERCULES DELISA will follow up on Thursday 08/09.
--- NOTE | 2017-08-06 11:31 | NUR ---
DELISA received an updated list of all facilities that were reached out to between Paul and from [facility] [phone]. Out of 42 facilities, one [[facility]] accepted, 4 are pending DoN approval and 37 have declined the patient.
--- NOTE | 2017-08-06 11:33 | NUR ---
Cynthia JONES assigned social work faculty member on this case provided a grievance from Kee Srinivasan, patient's brother. He is angry with [facility] and [facility] due to prior discharge planning and the fact that patient was discharged to [facility] after an admission at [facility]. Kee alleges there has been no discharge planning. Per Cynthia, she and Jesse from [facility] have faxed to 42 facilities.37 facilities declined this pt. Cynthia has some pending.Please refer to her notes. [facility]. Kee complained that no documentation was provided about home health.This is not provided if a patient enters a penitentiary facility. Cynthia has been actively engaged in discharge planning since patient's admission. Patient's HMO rates and his prior behavior is not attractive to facilities who feel patient is not an easy patient to manage and care for. Kee alleges that [facility] does not provide PT and OT which was confirmed by Cynthia JONES. Grievance from Kee was discussed with Mathew SALAMANCA. Daniel Freeman LCSW was also called by this clinician and advsied re the family's dissatisfaction with [facility]. Cynthia faxed requested documentation to [facility] and a ruling is awaited. Will monitor activity on this case and in close collaboration with Cynthia JONES. Addendum: 08/06/17 at 1153 by NOBLE HERCULES Clarification note: Cynthia JONES confirmed PT and OT is offered at [facility]. Kee's allegations that there is no rehab. is inaccurate.
--- NOTE | 2017-08-06 11:43 | NUR ---
DELISA spoke to Nataliia Carlos [phone] ext. [phone]. Nataliia informed DELISA that the most important part of the fax request was the confirmation of fax sent to Neha. Nataliia stated that she received that particular fax. Nataliia stated that the IM was something that is not always provided and available and that DELISA may disregard that.
--- NOTE | 2017-08-06 12:07 | NUR ---
Nurys from [facility], informed criminal justice social worker that they will keep the patient's referral on file and will wait for confirmation for discharge and placement. SW will follow up.
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
--- NOTE | 2017-08-06 12:48 | NUR ---
SW checked the status of the case online at [employer] with and the status indicated that all documents were received.
--- NOTE | 2017-08-06 14:07 | NUR ---
DELISA was contacted by patient's brother, Kee [phone]. Kee stated that he is feeling very confused and does not understand what is going on. Kee stated that he called [facility] [phone] and spoke to [facility]. He stated that he informed Ani that family is unwilling to send patient to the facility and that they want a long-term stay. Kee stated that Ani said she reviewed the inquiry a second time and noticed that patient was aggressive. According to Kee, Ani told him that the facility is declining the patient. DELISA reached out to [facility] [phone] for confirmation/clarification but was unable to reach her. DELISA left a message with engineering secretary, Dann, and asked Ani to call her. DELISA will follow up. DELISA will inform insurance. Addendum: 08/06/17 at 1442 by VIOLETTA HERCULES It would appear that the family has interfered with placement plan.
--- NOTE | 2017-08-06 14:17 | NUR ---
DELISA notified her truck repair supervisor, Dr. Senior, Wanyd Miller and Daniel Quiroz about the change in discharge plan, with [facility] hesitant in accepting patient. DELISA left voicemail for Wandy Miller and Daniel and directly spoke with Dr. Senior and truck repair supervisor Soraida Yu. DELISA will follow up.
--- NOTE | 2017-08-06 14:40 | NUR ---
Per Paul the following facilities which were previously pending, have now declined the patient: [facility] P-[phone] [phone] Per Colleen- AZAEL unable to meet patients needs [facility] S-[phone] Z-[phone]- Per Epi, will have DON review case. 11:05 left a vm with Epi. 1:24: Per Epi, no beds available at this time.
--- NOTE | 2017-08-06 15:46 | NUR ---
DELISA faxed over the written statement that [facility] is not accepting patient, as was requested by Neha to fax number [phone].
--- NOTE | 2017-08-06 15:46 | NUR ---
DELISA was contacted by Wandy [phone] and informed DELISA that they are looking for more facilities that inquiries can be sent to. Wandy told DELISA that the family can find facilities on their own and draw up a letter of agreement. Wandy also stated that [facility] is also in talks with [facility] to assess and accept patient. DELISA will follow up.
--- NOTE | 2017-08-06 15:53 | NUR ---
DELISA spoke with pt's nephew Helga, [phone]. DELISA informed him that the family can look at facilities that they like and that the insurance company can work out a letter of agreement. DELISA also reiterated that it might be best to dis-enroll patient from [place] and put him on straight Medicare so that he has more options. Rosinadenylouie stated that he did not know how to do that. DELISA advised him to go on the insurance website or call a helpline. Helga requested a list of facilities that have been faxed already. DELISA stated that she will leave the list with the charge nurse. DELISA left the list in patient's chart and informed charge nurse of it.
[2017-08-06 16:00] VITALS: BP 134/70
[2017-08-06 20:00] VITALS: BP 127/70
[2017-08-06] MEDS: TRAZODONE 50 MG TABLET PO SCH (21:32)
[2017-08-07 08:00] VITALS: BP 136/66
[2017-08-07] MEDS: BOOST PLUS FOOD-CHOCLATE 237 ML BOX PO SCH ×2 (08:12→16:37)
[2017-08-07] MEDS: GABAPENTIN 300 MG CAPSULE PO SCH ×4 (08:55→21:33)
[2017-08-07] MEDS: NICOTINE PATCH (21MG) 21 MG PATCH.TD24 TD SCH (08:55)
[2017-08-07] MEDS: QUETIAPINE FUMARATE 100 MG TABLET PO SCH ×2 (08:56→16:37)
[2017-08-07] MEDS: ESCITALOPRAM OXALATE (10 MG) 10 MG TABLET PO SCH (08:56)
[2017-08-07] MEDS: ATORVASTATIN 10 MG TABLET PO SCH (08:56)
[2017-08-07] MEDS: busPIRone 5 MG TABLET PO SCH ×2 (08:56→16:37)
[2017-08-07] MEDS: NIFEdipine XL 60 MG TAB PO SCH (08:57)
[2017-08-07] MEDS: CARVEDILOL 12.5 MG TABLET PO SCH ×2 (08:57→21:34)
[2017-08-07] MEDS: Z GUARD REMEDY 2 OZ OINT TP SCH (09:02)
[2017-08-07] MEDS: NEOMY SULF/BACITRAC ZN/POLY 15 GM TUBE TP SCH (09:02)
[2017-08-07 10:31] LABS: ALBUMIN 3.3 g/dL (3.4-5.0); BILIRUBIN,DIRECT 0.2 mg/dL (0.0-0.2); BILIRUBIN,TOTAL 0.8 mg/dL (0.2-1.0)
[2017-08-07 16:00] VITALS: BP 125/70
[2017-08-07 20:00] VITALS: BP 119/64
[2017-08-07] MEDS: TRAZODONE 50 MG TABLET PO SCH (21:33)
--- NOTE | 2017-08-08 00:37 | NUR ---
Pt remains confused & fragmented but compliant with care w/o any promptings.
[2017-08-08 07:56] VITALS: BP 125/68
[2017-08-08] MEDS: busPIRone 5 MG TABLET PO SCH ×2 (08:21→16:07)
[2017-08-08] MEDS: NICOTINE PATCH (21MG) 21 MG PATCH.TD24 TD SCH (08:21)
[2017-08-08] MEDS: NIFEdipine XL 60 MG TAB PO SCH (08:22)
[2017-08-08] MEDS: GABAPENTIN 300 MG CAPSULE PO SCH ×4 (08:22→21:15)
[2017-08-08] MEDS: ATORVASTATIN 10 MG TABLET PO SCH (08:22)
[2017-08-08] MEDS: CARVEDILOL 12.5 MG TABLET PO SCH ×2 (08:22→21:14)
[2017-08-08] MEDS: QUETIAPINE FUMARATE 100 MG TABLET PO SCH ×2 (08:23→16:07)
[2017-08-08] MEDS: ESCITALOPRAM OXALATE (10 MG) 10 MG TABLET PO SCH (08:23)
[2017-08-08] MEDS: Z GUARD REMEDY 2 OZ OINT TP SCH (08:25)
[2017-08-08] MEDS: NEOMY SULF/BACITRAC ZN/POLY 15 GM TUBE TP SCH (08:25)
[2017-08-08] MEDS: BOOST PLUS FOOD-CHOCLATE 237 ML BOX PO SCH ×2 (08:28→16:07)
[2017-08-08 16:00] VITALS: BP 128/72
[2017-08-08 20:12] VITALS: BP 133/75
[2017-08-08] MEDS: TRAZODONE 50 MG TABLET PO SCH (21:14)
[2017-08-09 08:00] VITALS: BP 143/62
[2017-08-09] MEDS: busPIRone 5 MG TABLET PO SCH ×2 (09:12→16:24)
[2017-08-09] MEDS: QUETIAPINE FUMARATE 100 MG TABLET PO SCH ×2 (09:12→16:23)
[2017-08-09] MEDS: NICOTINE PATCH (21MG) 21 MG PATCH.TD24 TD SCH (09:12)
[2017-08-09] MEDS: ESCITALOPRAM OXALATE (10 MG) 10 MG TABLET PO SCH (09:13)
[2017-08-09] MEDS: GABAPENTIN 300 MG CAPSULE PO SCH ×4 (09:13→21:28)
[2017-08-09] MEDS: NEOMY SULF/BACITRAC ZN/POLY 15 GM TUBE TP SCH (09:14)
[2017-08-09] MEDS: CARVEDILOL 12.5 MG TABLET PO SCH ×2 (09:15→21:27)
[2017-08-09] MEDS: NIFEdipine XL 60 MG TAB PO SCH (09:15)
[2017-08-09] MEDS: Z GUARD REMEDY 2 OZ OINT TP SCH (09:19)
[2017-08-09] MEDS: BOOST PLUS FOOD-CHOCLATE 237 ML BOX PO SCH ×2 (09:20→16:24)
--- NOTE | 2017-08-09 10:30 | NUR ---
DELISA called [facility], and asked to speak with Mr. Blanco [scheduling administrator]. DELISA was informed that Mr. Blanco was in a meeting. DELISA left a message for him with the intelligence research specialist stating that this is a follow up to an assessment of the patient. DELISA left her contact information. DELISA will follow up later.
--- NOTE | 2017-08-09 10:32 | NUR ---
DELISA checked status of the case on [employer] with - AP. The status stated that the case review was complete: Appeal Started: 08/05/2017 4:47:05 PM Medical Records Received 08/06/2017 5:30:56 PM Outcome: MS Disagrees with termination of Hospital services Liability: Managed Care Liability Starts on 07/29/2017 DELISA will inform Regina from [employer].
--- NOTE | 2017-08-09 10:39 | NUR ---
DELISA called, both, Paul [phone] and Wandy [phone] from [facility] and left a message updating them on the status of the case. DELISA left her contact information as well and asked for their help in securing placement for patient.
--- NOTE | 2017-08-09 11:23 | NUR ---
SW called and left a voicemail for pt's nephew, Helga, [phone]. SW stated that she wanted to follow up and see if family was able to find any facilities that they were interested in. SW left contact information.
--- NOTE | 2017-08-09 11:42 | NUR ---
DELISA faxed over an inquiry to Latrell from admissions at [facility], [address] [place] [address], [phone] to fax number [phone]. DELISA will follow up.
--- NOTE | 2017-08-09 12:24 | NUR ---
[id number]: LEFT MESSAGE TO DOCTOR KING REGARDING A NEUROLOGY CONSULT. PENDING RETURN PHONE CALL.
--- NOTE | 2017-08-09 12:42 | NUR ---
DELISA heard back from senior windows systems administrator Mr. Blanco from [facility], . Mr. Blanco stated that he is still interested in coming in to assess patient, but cannot promise when. Mr. Blanco stated that he "has many problems at work" and that he will try to come and assess patient this week. Mr. Blanco stated that he cannot promise that it will happen, but will try his best. DELISA confirmed that he had her contact information and encouraged him to call to set up an assessment.
--- NOTE | 2017-08-09 12:52 | NUR ---
[id number]: DR. KING ORDERED NEUROLOGY CONSULT. LEFT MESSAGE TO DR. ROMERO OFFICE PENDING RETURN PHONE CALL.
--- NOTE | 2017-08-09 14:24 | NUR ---
Pt's brother, Kee and a family friend, Blanca came up to DELISA and asked to speak with her. The family expressed their confusion and grievances. The family stated that they received the list of facilities that were faxed. The family demanded a copy of patient's charts as well as the inquiry that is being sent out to facilities. DELISA stated that she had to check with paper testing supervisor. Upon speaking with paper testing supervisor, DELISA was informed that not even a DPOA can have a copy of psychiatric medical records. DELISA informed the family of this. The family stated that they were going to fax over a list of facilities they wanted geriatric social worker to look into. DELISA provided them with her fax number. The family asked what were the next steps and SW walked them through the process, like finding an accepting facility, arranging transportation, communicating with [place]. DELISA once again encouraged family to dis-enroll the patient from [place] and put him on straight medicare. The family friend stated that she can help with that. The family also stated that the updates that the SW provides only serve to confuse the family and asked her to update family once things are set. DELISA stated that updates help keep everyone informed and can also prevent last minute crises from rising up. The family provided DELISA with the name of one facility that they had in mind: [facility] [contact = Pavel]. DELISA assured them that she will follow up and reminded them to fax over the list of facilities they wanted to be looked into. The family appeared to be demanding, confused and pushy. SW will follow up.
--- NOTE | 2017-08-09 14:55 | NUR ---
DELISA faxed over an inquiry to Pavel in Admissions at [facility] [phone] , fax number [phone]. DELISA will follow up.
--- NOTE | 2017-08-09 14:57 | NUR ---
DELISA heard back from Latrell in [facility] who stated that the facility was unable to take patient due to past behavioral problems and aggression. Patient has been declined.
[2017-08-09 16:00] VITALS: BP 136/80
[2017-08-09 19:49] VITALS: BP 136/80
[2017-08-09 19:59] VITALS: BP 154/82
--- NOTE | 2017-08-09 20:00 | NUR ---
GPS/RN NOTES FAMILY VISIT AND REQUESTED TO HAVE MEETING W/ DR. ROMERO FOR PLAN OF CARE AND CONCERN W/ SPEECH AND REHABILITATION OF PATIENT FOR SAFETY TO PREVENT FALL.
[2017-08-09 20:08] VITALS: BP 134/82
[2017-08-09] MEDS: TRAZODONE 50 MG TABLET PO SCH (21:28)
[2017-08-09] MEDS: PRAVASTATIN SODIUM 20 MG TABLET PO SCH (22:00)
--- NOTE | 2017-08-09 22:27 | NUR ---
gps/rn notes pravastatin 20mg not available, charge nurse made aware to f/u w/ pharmacy in am
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
[2017-08-10 08:00] VITALS: BP 124/79
[2017-08-10] MEDS: GABAPENTIN 300 MG CAPSULE PO SCH ×4 (08:44→20:15)
[2017-08-10] MEDS: NICOTINE PATCH (21MG) 21 MG PATCH.TD24 TD SCH (08:44)
[2017-08-10] MEDS: QUETIAPINE FUMARATE 100 MG TABLET PO SCH ×2 (08:44→16:17)
[2017-08-10] MEDS: ESCITALOPRAM OXALATE (10 MG) 10 MG TABLET PO SCH (08:45)
[2017-08-10] MEDS: CARVEDILOL 12.5 MG TABLET PO SCH ×2 (08:45→20:15)
[2017-08-10] MEDS: busPIRone 5 MG TABLET PO SCH ×2 (08:45→16:17)
[2017-08-10] MEDS: NIFEdipine XL 60 MG TAB PO SCH (08:48)
[2017-08-10] MEDS: NEOMY SULF/BACITRAC ZN/POLY 15 GM TUBE TP SCH (08:50)
[2017-08-10] MEDS: BOOST PLUS FOOD-CHOCLATE 237 ML BOX PO SCH ×2 (09:34→16:17)
--- NOTE | 2017-08-10 09:54 | NUR ---
DELISA heard back from admissions in Admissions at [facility] [id number] [place] [address] who informed DELISA that there are no beds available.
[2017-08-10] MEDS: Z GUARD REMEDY 2 OZ OINT TP SCH (11:31)
--- NOTE | 2017-08-10 12:30 | NUR ---
DELISA faxed over inquiry to Ashely from [facility] (phone: [phone]/ fax: [phone]) [address] [place] [address]. Ashely stated that if she can't secure placement at [facility], she will try and assist with getting patient placed elsewhere in that area. DELISA will follow up.
--- NOTE | 2017-08-10 12:31 | NUR ---
DELISA called pt's brother, Kee [phone] to set up a meeting between him and social service and nursing supervisors. Kee stated he feels he is being intimidated and manipulated by the hospital. Kee stated that he gets confused and wants a family friend there to help him out. Kee sounded upset and angry on the telephone. DELISA followed up with supervisor [employer] who stated that the family friend may attend. DELISA attempted to get in contact with Kee again, but was informed he was in a meeting. DELISA will attempt contact later.
--- NOTE | 2017-08-10 12:56 | NUR ---
DELISA faxed an inquiry to HERIBERTO from [facility] who stated he will help forward the inquiry out. Fax number [phone]. DELISA will follow up.
--- NOTE | 2017-08-10 14:49 | NUR ---
DELISA faxed inquiries to the following facilities: [facility] in [place] : [phone] / fax #[phone] [facility] in [place] : [phone] / fax #[phone] [facility] in [place] : [phone] / fax #[phone] [facility] in [place] : [phone] / fax #[phone] [facility] in [place]: [phone] / fax #[phone] [facility] in [facility]: [phone] / fax #[phone] DELISA will follow up.
--- NOTE | 2017-08-10 15:24 | NUR ---
DELISA faxed inquiries to the following facilities: [facility] in [place] [at the request of family]: [phone] / fax #[phone] [facility] [at the request of family]: [phone] / fax #[phone] [facility] in [place]: [phone] / fax #[phone] DELISA will follow up
--- NOTE | 2017-08-10 15:26 | NUR ---
DELISA spoke with pt's brother Kee [phone]. Kee stated that he will come to the meeting with slot supervisor with his family friend on at 10am. DELISA made arrangements. DELISA asked Kee for the list of facilities that the family promised to fax over. Kee stated that he has two facilities in mind: [facility] and [facility]. DELISA asked if there were going to be more facilities and again asked for list. Kee stated that these were the two facilities the family found to be appropriate at this time. DELISA stated that she will fax them and urged family to compile a longer list.
[2017-08-10 15:41] VITALS: BP 127/83
--- NOTE | 2017-08-10 15:48 | NUR ---
DELISA heard back from admissions at [facility] in [place] and was informed that there were no beds available.
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
[2017-08-10 19:57] VITALS: BP 101/69
[2017-08-10] MEDS: TRAZODONE 50 MG TABLET PO SCH (21:26)
[2017-08-10] MEDS: PRAVASTATIN SODIUM 20 MG TABLET PO SCH (21:58)
[2017-08-11 08:27] VITALS: BP 143/52
[2017-08-11] MEDS: BOOST PLUS FOOD-CHOCLATE 237 ML BOX PO SCH ×2 (08:45→17:02)
[2017-08-11] MEDS: NEOMY SULF/BACITRAC ZN/POLY 15 GM TUBE TP SCH (08:46)
[2017-08-11] MEDS: NIFEdipine XL 60 MG TAB PO SCH (08:46)
[2017-08-11] MEDS: NICOTINE PATCH (21MG) 21 MG PATCH.TD24 TD SCH (08:47)
[2017-08-11] MEDS: GABAPENTIN 300 MG CAPSULE PO SCH ×4 (08:47→21:30)
[2017-08-11] MEDS: ASPIRIN EC 81 MG TABLET.DR PO SCH (08:47)
[2017-08-11] MEDS: ESCITALOPRAM OXALATE (10 MG) 10 MG TABLET PO SCH (08:48)
[2017-08-11] MEDS: busPIRone 5 MG TABLET PO SCH ×2 (08:48→16:58)
[2017-08-11] MEDS: QUETIAPINE FUMARATE 100 MG TABLET PO SCH ×2 (08:48→16:58)
[2017-08-11] MEDS: CARVEDILOL 12.5 MG TABLET PO SCH ×2 (08:48→21:30)
[2017-08-11] MEDS: Z GUARD REMEDY 2 OZ OINT TP SCH (08:49)
--- NOTE | 2017-08-11 10:40 | NUR ---
SW was given a message by a nurse, who stated that [facility] in [place] : [phone] / fax #[phone] called and said there were no beds available.
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
[2017-08-11 15:59] VITALS: BP 137/63
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
--- NOTE | 2017-08-11 16:23 | NUR ---
Per Paul, the following facilities were faxed: 58 [facility] [phone] -Renetta wanted packet sent, she will evaluate. 1204 [facility]ilar[facility] [phone] -Augusto/Oralia was in a meeting. -Spoke with Ford from [employer] who asked for a packet to be sent to FAX # [phone]. Will check back in an hour. - I called back at 1344 and Augusto was not available. The electronic heat seal operator transferred me to his voice mail and I asked him to review our packet and call Paul back. 1210 Ruth Ann [facility] [phone] -Fifi-Intake. Left voice mail, packet sent. Asked her to evaluate packet/ call Paul back. -Not a locked facilty, but secure. 1214 [facility] [phone] -No male beds available today. 1218 [facility] [phone] -Liliam says no longer term male beds available. 1222 [facility] [phone] -FAX on Log is correct. Spoke with Rosa Maria Rayo (at lunch). -Packet sent for review. -Will have male bed , 08/12. 1230 [facility] [phone] -Kalyani: Would like packet sent and will follow up with Paul. Verbal report given including need require family member to sign patient in, and wants [employer] as a secondary. [address] [place] 957239 [phone] -Maddy: Does not believe this is a good fit, because they are not contracted with [employer]. She recommended we try [facility] in [place] and Jodie Castillo in [place]. (They are not on our list.) 1241 [facility] [phone] -Katie: No male beds available. 1248 [facility] [phone] -Ora/Intake is at lunch. They do have male beds available, call back in one hour. -Called Ora back at 1351 and she was interested in the patient, however they are private pay and they do not take insurance. 1318 [facility]ie [facility]/[place] [phone] -Margaux: Intake. Margaux would like record sent and she will discuss with AZAEL. I discussed psych status with her. Their facility is not locked or secured, but they have an alarm when patient gets up. Margaux would like packet sent to Annmarie Fabian @ [phone]. NOT CONTRACTED. Suggested by Maddy @ [place] because they are contracted with [employer]. Ritesh6 Jodie R[facility]/[place] [phone] -Ines: Intake. Ines would like record sent and she will discuss with nursing staff. I discussed psych status with her. Their facility is not locked or secured specifically. She would like packet sent to Ines at [phone]. NOT CONTRACTED. Suggested by Maddy at [facility] because they are contacted with [employer]. [address] [place] 722936 [phone] -Josefina: Unlocked Facility -No answer left message to call Paul. 1401 [facility] [phone] -Chrystal (Rafy no longer there): No locked, no male beds. 1430 [facility] [phone] -Spoke with Ashely, She asked that a packet be sent and she would give to the Intake named Ladonna. This is a facility we used when I was at [facility] so it would be worth Paul making a follow up call by the end of the day. Info given to Paul at 1435. 1445 [facility] [phone] Jacque/Intake: I already reviewed this case and our team discussed the patient. We have to turn him down at the time. 1448 [facility]. [phone] -Moises/Intake: Not locked or secured and on a very busy street. Refused patient. Suggested [facility] [place]. 1453 [facility] [phone] -Recording asking that the packet be sent to . They will review packet and get back to us. In their list of extensions they listed a benefits specialist, so maybe they would be interested in the member. 1500 [facility] [phone] -Yudith/Intake: They have 6 facilities one in [place], two in [facility]. The facilities are not but they will review the documentation. The [facility] facility ([facility]) and the [facility] Facility ([facility]) are on busy streets so they might not be suitable. They will look at the Record and I asked that they call us back one way or the other.
[2017-08-11 19:36] VITALS: BP 127/67
[2017-08-11] MEDS: PRAVASTATIN SODIUM 20 MG TABLET PO SCH (21:30)
[2017-08-11] MEDS: TRAZODONE 50 MG TABLET PO SCH (21:30)
[2017-08-12] MEDS: BOOST PLUS FOOD-CHOCLATE 237 ML BOX PO SCH ×2 (07:56→16:34)
[2017-08-12 08:00] VITALS: BP 134/56
[2017-08-12] MEDS: CARVEDILOL 12.5 MG TABLET PO SCH ×2 (08:06→21:08)
[2017-08-12] MEDS: QUETIAPINE FUMARATE 100 MG TABLET PO SCH ×2 (08:06→16:34)
[2017-08-12] MEDS: busPIRone 5 MG TABLET PO SCH ×2 (08:06→16:35)
[2017-08-12] MEDS: NICOTINE PATCH (21MG) 21 MG PATCH.TD24 TD SCH (08:06)
[2017-08-12] MEDS: NEOMY SULF/BACITRAC ZN/POLY 15 GM TUBE TP SCH (08:06)
[2017-08-12] MEDS: ASPIRIN EC 81 MG TABLET.DR PO SCH (08:06)
[2017-08-12] MEDS: NIFEdipine XL 60 MG TAB PO SCH (08:07)
[2017-08-12] MEDS: ESCITALOPRAM OXALATE (10 MG) 10 MG TABLET PO SCH (08:07)
[2017-08-12] MEDS: Z GUARD REMEDY 2 OZ OINT TP SCH (08:07)
[2017-08-12] MEDS: GABAPENTIN 300 MG CAPSULE PO SCH ×4 (08:07→21:07)
--- NOTE | 2017-08-12 11:53 | NUR ---
DELISA received a message from Jamaica in [facility]. Jamaica stated that the inquiry for pt was forwarded from [facility] and that [facility] is interested in accepting the patient. Jamaica stated that she needs to sort out details with insurance. DELISA called back and left a voicemail with her contact information, as well as contact information for the contact at [facility].
--- NOTE | 2017-08-12 11:56 | NUR ---
DELISA spoke with pt's RN Ruth and asked her to order an OT assessment for pt. Ruth stated that she will.
--- NOTE | 2017-08-12 12:31 | NUR ---
DELISA contacted Nida at [facility] and asked if a second review of pt's inquiry can be conducted. DELISA stated that she will fax over progress notes and that Dr. Traore encourages acceptance. Nida stated that the answer is still no and that the facility will not be accepting patient due to behavioral issues.
--- NOTE | 2017-08-12 14:42 | NUR ---
SW followed up on the following facilities: [facility] fax number [phone] 5122 [facility] , PENDING social problems specialist left voicemail at 2:30pm 08/12 [facility] fax number [phone] 975 [facility] DENIED no beds available, will keep inquiry on file, DELISA to follow up [facility] fax number [phone] [place] [address] DENIED per antelmo, due to behavioral problems [facility] fax number [phone] 6835 [facility] PENDING SW left message with switchboard operator receptionist Laly for admissions [facility] [at the request of family]: [phone] / fax #[phone] DENIED per Lida, due to behavioral issues [facility] in [place] : [phone] / fax #[phone] DENIED SW received voicemail from lucille Joyner denied due to behavioral issues
--- NOTE | 2017-08-12 14:47 | NUR ---
Per Paul from [place], a list of updates from contacted facilities: 1125 [facility] [phone] -08/12/17 - Left message for Renetta requesting a call back. 1129 Hilario [facility]ajan [phone] -08/12/17 Augusto did not receive packet, requested it be re sent to [phone]. 1132 Ruth Ann [facility]ajan [phone] -08/12/17 Chastin in intake requested packet be sent out again. 1137 [facility] [phone] -08/12/17 Ray requested packet be sent. Possible male bed available tomorrow. 1147 [facility] [phone] -08/12/17 Per Liliam, joint terminal attack controller male bed possibly available 08/17/17. 08/12 DENIED [employer] [phone] -08/12/17 No chcf beds available for a few weeks. 08/12 DENIED [facility] [phone] -08/12/17 Waiting list of 40+. Unable to accept pt at this time. 08/12 DENIED [facility] [phone] -08/12/17 Katie: Not accepting joint terminal attack controller patients. 08/11 DENIED [facility] [phone] -Ora/Joann is at lunch. They do have male beds available, call back in one hour. -Called Ora back at 1351 and she was interested in the patient, however they are private pay and they do not take insurance. 08/12 DENIED [facility] [phone] -Margaux: Intake refused patient. 1340 Jodie [facility] [phone] -Left message requesting a call back in intake dept. 08/12 DENIED [facility] [phone] -No beds available for a while. 1341 DENIED [facility] [phone] -08/12/17 Per AZAEL Jarrell refused pt. 1206 [facility] [phone] -08/12/17 Left voice message for DON requesting a call back. 08/11 DENIED [facility] [phone] 08/11/17 Jacque/Intake: I already reviewed this case and our team discussed the patient. We have to turn him down at the time. 08/11 DENIED [facility]. [phone] -08/11/17 Refused patient. 08/12 DENIED [facility] [phone] -08/12/17Eric in intake stated no availability in the upcoming future. 1320 DENIED [facility] [phone] -08/12/17 Per Mera, no joint terminal attack controller beds. Call to check in daily. Fax packet to [phone]
--- NOTE | 2017-08-12 14:50 | NUR ---
DELISA messaged Paul from [place] and informed him that family is okay with short term placement and that long-term beds are not a requirement from facilities.
--- NOTE | 2017-08-12 15:41 | NUR ---
DELISA faxed inquiries to the following facilities...SW to follow up tomorrow morning: [facility] [place] [address] [address] [place] [phone] / fax [phone] [facility] [address] [place] [address] / fax [phone] [facility] [place] [address] [place] [phone] / fax [phone] [address] / fax [phone]
[2017-08-12 16:00] VITALS: BP 152/77
[2017-08-12 20:00] VITALS: BP_SYST 123; BP_SYST 142; BP_DIAS 66; BP_DIAS 76
[2017-08-12] MEDS: TRAZODONE 50 MG TABLET PO SCH (21:07)
[2017-08-12] MEDS: PRAVASTATIN SODIUM 20 MG TABLET PO SCH (21:32)
--- NOTE | 2017-08-12 21:33 | NUR ---
GPS/RN NOTE: PRAVACHOL NOT GIVEN, MEDS NOT AVAILABLE PER RN SECTION LABORER VIDYA, NOT AVAILABLE FROM NIGHT LOCKER AND FIRST FLOOR.
--- NOTE | 2017-08-13 07:12 | NUR ---
RN NOTE PT IS IN BED, RESTING COMFORTABLY. PT ON RA, RESPIRATIONS ARE EVEN AND UNLABORED. SAFETY MEASURES ARE IN PLACE. WILL CONTINUE TO MONITOR.
[2017-08-13 08:00] VITALS: BP_SYST 136; BP_DIAS 72; BP_DIAS 76
[2017-08-13] MEDS: BOOST PLUS FOOD-CHOCLATE 237 ML BOX PO SCH ×2 (08:00→16:18)
[2017-08-13] MEDS: ASPIRIN EC 81 MG TABLET.DR PO SCH (08:55)
[2017-08-13] MEDS: GABAPENTIN 300 MG CAPSULE PO SCH ×4 (08:56→21:57)
[2017-08-13] MEDS: busPIRone 5 MG TABLET PO SCH ×2 (08:56→16:18)
[2017-08-13] MEDS: ESCITALOPRAM OXALATE (10 MG) 10 MG TABLET PO SCH (08:56)
[2017-08-13] MEDS: NICOTINE PATCH (21MG) 21 MG PATCH.TD24 TD SCH (08:56)
[2017-08-13] MEDS: Z GUARD REMEDY 2 OZ OINT TP SCH (09:02)
[2017-08-13] MEDS: NEOMY SULF/BACITRAC ZN/POLY 15 GM TUBE TP SCH (09:03)
[2017-08-13] MEDS: NIFEdipine XL 60 MG TAB PO SCH (09:05)
[2017-08-13] MEDS: CARVEDILOL 12.5 MG TABLET PO SCH ×2 (09:05→21:55)
--- NOTE | 2017-08-13 09:17 | NUR ---
DELISA attempted to contact Silvina, , to inquire about licensed facilities that offer PT for patient. DELISA was met with the following message: "The person you are trying to reach is not accepting calls at this time..." DELISA will make a second attempt later in the day.
--- NOTE | 2017-08-13 10:29 | NUR ---
DELISA followed up on the following facilities: [facility] [place] [address] [place] [address] / fax [phone] Pending: left message with receptionist doctor's office Fatou because traffic coordinator was in a mtg. Will expect a call back. [facility] [address] [place] [address] / fax [phone] Declined: Per Mellisa in admissions, patient was declined by [facility]. No reason was specified when SW asked. [place] [address] [place] [address] / fax [phone] Pending: According to Maile in admission, SW was provided with the wrong fax. DELISA will refax to [phone] [address] / fax [phone] Pending: According to Adela in admissions, referrals have not been reviewed yet. Will call back once reviewed.
[2017-08-13] MEDS: QUETIAPINE FUMARATE 100 MG TABLET PO SCH ×2 (10:31→16:18)
--- NOTE | 2017-08-13 11:37 | NUR ---
DELISA heard back from Adela in admissions at [facility] [address] [place], [place] [address] / fax [phone]. DELISA was informed that the SNF is anticipating surveyors soon and they feel that this patient could disrupt that. However, Adela stated that typically they do not shy away from difficult patients and that she will keep the record on file and will contact DELISA after the survey is complete.
--- NOTE | 2017-08-13 12:12 | NUR ---
DELISA refaxed [facility] with the new fax number: [facility] [address] [place], [place] [phone] / fax [phone] DELISA faxed the following facilities which were listed on the list that the pts family provided: [facility] [address] [place] [address] [phone] / fax number [phone] [facility] [address] [place] [address] [phone] / fax number [phone] [facility] [address] [place] [address] [phone] / fax number [phone] [facility] [address] [place] [address] [phone] / fax number [phone] [facility] 1041 [place] [address] [phone] / fax number [phone] [facility] [address] [place] [address] [phone] / fax number [phone] [facility] [address] [place] [address] [phone] / [phone] [facility] [address] [place] [address] [phone] / fax number [phone] [facility] [address] [place] [address] [phone] / fax number [phone]
--- NOTE | 2017-08-13 15:06 | NUR ---
DELISA Financial Planner followed up with the following facilities: [place] [address] [place], [place] [phone] / fax [phone] DECLINED, per Ora in admissions, there are no beds available [facility] [address] [place] [address] [phone] / fax number [phone] PENDING SW sports management intern left voicemail for Lucia Steelyce in admissions [facility] [address] [place] [address] [phone] / fax number [phone] DECLINED, per Becca in admissions, no beds are available [facility] 1041 [place] [phone] / fax number [phone] PENDING, per Eileen in admissions, no male beds are available until Wednesday. DELISA will follow up then. [facility] [address] [place] [address] [phone] / fax number [phone] PENDING SW Financial Planner had to re-fax the packet. DELISA Marie will follow up on Wednesday. [facility] [address] [place] [address] [phone] / [phone] DECLINED, per Bj, no beds available [facility] [address] [place] [address] [phone] / fax number [phone] DECLINED, per Jefferson no beds available [facility] [address] [place] [address] [phone] / fax number [phone] PENDING per Shandra, no beds are available but encouraged SW Financial Planner to re-fax packet. DELISA Marie will follow up on Wednesday.
--- NOTE | 2017-08-13 15:11 | NUR ---
DELISA [facility] She stated that they had a bed available for patient, but were hesitating due to the insurance. DELISA explained that insurance was willing to sign letter of agreement and urged the release coordinator to call Paul to discuss the letter of agreement. She stated that she would. DELISA emailed Paul and informed him to look out for a call, as this was also a facility that was approved by the family [on their list]. Paul emailed back a later on and stated that they were in the process of discussing the ANGEL. DELISA will follow up on Wednesday.
--- NOTE | 2017-08-13 15:46 | NUR ---
DELISA [facility] from [facility] at [facility]. She stated that there is a doctor who is contracted by [facility] already on board and that the facility has a bed available for patient. She stated that she is waiting on the letter of agreement. DELISA will follow up on Wednesday.
[2017-08-13 16:00] VITALS: BP 140/67
[2017-08-13 16:10] VITALS: BP 140/67
--- NOTE | 2017-08-13 18:08 | NUR ---
RN NOTE P T IS IN BED, AWAKE, VERY CONFUSED AND ANXIOUS. PT ON RA, RESPIRATIONS ARE EVEN AND UNLABORED. PT COMPLIANT WITH MEDICATIONS AND SELF CARE. WILL ENDORSE TO AGRICULTURAL ENGINEERING TECHNICIANS RN.
--- NOTE | 2017-08-13 19:50 | NUR ---
GPS/RN NOTE: AWAKE, ALERT, ORIENTED X2, RESTING COMFORTABLY, NO SIGNS AND SYMPTOMS OF ANY DISCOMFORT. STABLE CONDITION.
[2017-08-13] MEDS: ATORVASTATIN 10 MG TABLET PO SCH (21:56)
[2017-08-13] MEDS: TRAZODONE 50 MG TABLET PO SCH (21:56)
[2017-08-14 08:00] VITALS: BP 137/80
[2017-08-14] MEDS: NICOTINE PATCH (21MG) 21 MG PATCH.TD24 TD SCH (08:21)
[2017-08-14] MEDS: GABAPENTIN 300 MG CAPSULE PO SCH ×4 (08:22→21:34)
[2017-08-14] MEDS: busPIRone 5 MG TABLET PO SCH ×2 (08:22→17:09)
[2017-08-14] MEDS: CARVEDILOL 12.5 MG TABLET PO SCH ×2 (08:23→21:33)
[2017-08-14] MEDS: ESCITALOPRAM OXALATE (10 MG) 10 MG TABLET PO SCH (08:23)
[2017-08-14] MEDS: ASPIRIN EC 81 MG TABLET.DR PO SCH (08:23)
[2017-08-14] MEDS: QUETIAPINE FUMARATE 100 MG TABLET PO SCH ×2 (08:24→17:09)
[2017-08-14] MEDS: NIFEdipine XL 60 MG TAB PO SCH (08:25)
[2017-08-14] MEDS: BOOST PLUS FOOD-CHOCLATE 237 ML BOX PO SCH ×2 (08:27→17:08)
[2017-08-14] MEDS: NEOMY SULF/BACITRAC ZN/POLY 15 GM TUBE TP SCH (09:19)
[2017-08-14] MEDS: Z GUARD REMEDY 2 OZ OINT TP SCH (09:19)
[2017-08-14 16:00] VITALS: BP 124/64
--- NOTE | 2017-08-14 19:30 | NUR ---
GPS/CREDIT ANALYSIS MANAGER; RECEIVED PT IN BED ON HIS RT SIDE POSITION SLEEPING AT THIS TIME. BREATHING NON LABORED AND EVEN. BED ON LOWER POSITION AND LOCKED FOR SAFETY. UPPER PART OF BED SIDE RAILS ARE UP FOR SAFETY. WILL CONTINUE TO MONITOR.
[2017-08-14 20:00] VITALS: BP 129/66
[2017-08-14] MEDS: TRAZODONE 50 MG TABLET PO SCH (21:35)
[2017-08-14] MEDS: ATORVASTATIN 10 MG TABLET PO SCH (21:35)
--- NOTE | 2017-08-15 06:24 | NUR ---
GPS/CRABBER; PT SLEPT FOR SEVEN HOURS LAST NIGHT. BREATHING NON LABORED. WILL CONTINUE TO MONITOR.
[2017-08-15 07:59] VITALS: BP 148/70
[2017-08-15] MEDS: Z GUARD REMEDY 2 OZ OINT TP SCH (09:04)
[2017-08-15] MEDS: NEOMY SULF/BACITRAC ZN/POLY 15 GM TUBE TP SCH (09:05)
[2017-08-15] MEDS ORDERED: busPIRone HCL 10 MG TABLET PO SCH (09:16)
[2017-08-15] MEDS: NICOTINE PATCH (21MG) 21 MG PATCH.TD24 TD SCH (09:24)
[2017-08-15] MEDS: BOOST PLUS FOOD-CHOCLATE 237 ML BOX PO SCH ×2 (09:25→17:10)
[2017-08-15] MEDS: NIFEdipine XL 60 MG TAB PO SCH (09:25)
[2017-08-15] MEDS: ESCITALOPRAM OXALATE (10 MG) 10 MG TABLET PO SCH (09:26)
[2017-08-15] MEDS: ASPIRIN EC 81 MG TABLET.DR PO SCH (09:26)
[2017-08-15] MEDS: GABAPENTIN 300 MG CAPSULE PO SCH ×4 (09:26→21:19)
[2017-08-15] MEDS: QUETIAPINE FUMARATE 100 MG TABLET PO SCH ×3 (09:27→17:11)
[2017-08-15] MEDS: CARVEDILOL 12.5 MG TABLET PO SCH ×2 (09:28→21:19)
[2017-08-15 15:37] VITALS: BP 146/78
--- NOTE | 2017-08-15 16:27 | NUR ---
GPS/RN NOTES WOUND CARE WAS PERFORMED PER ORDER.
[2017-08-15] MEDS: busPIRone 5 MG TABLET PO SCH (17:11)
[2017-08-15 19:52] VITALS: BP_SYST 142; BP_SYST 145; BP_DIAS 72; BP_DIAS 90
[2017-08-15 20:01] VITALS: BP 142/72
--- NOTE | 2017-08-15 21:00 | NUR ---
RN NOTES PT. REFUSED PHOTO
[2017-08-15] MEDS: TRAZODONE 50 MG TABLET PO SCH (21:19)
[2017-08-15] MEDS: ATORVASTATIN 10 MG TABLET PO SCH (21:20)
[2017-08-16 08:15] VITALS: BP 120/75
[2017-08-16] MEDS: NICOTINE PATCH (21MG) 21 MG PATCH.TD24 TD SCH (08:32)
[2017-08-16] MEDS: ASPIRIN EC 81 MG TABLET.DR PO SCH (08:33)
[2017-08-16] MEDS: busPIRone 5 MG TABLET PO SCH (08:33)
[2017-08-16] MEDS: QUETIAPINE FUMARATE 100 MG TABLET PO SCH ×2 (08:33→12:55)
[2017-08-16] MEDS: ESCITALOPRAM OXALATE (10 MG) 10 MG TABLET PO SCH (08:33)
[2017-08-16] MEDS: GABAPENTIN 300 MG CAPSULE PO SCH ×2 (08:34→12:55)
[2017-08-16] MEDS: CARVEDILOL 12.5 MG TABLET PO SCH (08:34)
[2017-08-16] MEDS: BOOST PLUS FOOD-CHOCLATE 237 ML BOX PO SCH (09:01)
[2017-08-16] MEDS: NEOMY SULF/BACITRAC ZN/POLY 15 GM TUBE TP SCH (09:01)
[2017-08-16] MEDS: Z GUARD REMEDY 2 OZ OINT TP SCH (09:02)
[2017-08-16] MEDS: NIFEdipine XL 60 MG TAB PO SCH (09:12)
[2017-08-16 15:37] VITALS: BP 138/72
--- NOTE | 2017-08-16 17:53 | NUR ---
GPS/RN PATIENT CLEARED FOR DISCHARGE TO [facility] BY DR MICHEL AND DR KING. MEDICATIONS RECONCILED BY BOTH DR'S, PATIENT REFUSED TO SIGN D/C PAPER WORK, CO SIGNED BY 2 RN. D/C PACKET, MEDICATIONS AND AFTERCARE PLAN EXPLAINED TO PATIENT HOWEVER, PATIENT IS CONFUSED AND UNABLE TO COMPREHEND. PATIENT ADAMANTLY REFUSED TO ALLOW STAFF TO TAKE DISCHARGE PHOTOS,OFFERED X3 AND EXPLAINED RISKS AND BENEFITS. REPORT CALLED TO INNA AT FACILITY, PATIENT DENIES SI/HI/AH UPON DISCHARGE, PSYCHIATRIC TREATMENT PLANS MET, PATIENT IS COOPERATIVE WITH CARE, NO AGITATION AT THIS TIME, LEFT UNIT CALM, NO DISTRESS NOTED WITH TRANSPORT AT SIDE.
[2017-08-17] MEDS ORDERED: NIFEdipine XL (30MG) 30 MG TAB PO SCH (09:00)
--- NOTE | 2017-08-17 09:09 | NUR ---
Discharge Note Patient will be discharged to [facility] [address] [place] [address] via ambulance transportation arranged by Paul from [employer], trip number [phone] at 4:30pm. Patients brother and oppacd-ww-eng, Kee and Haydee Srinivasan [phone], are aware and in agreement with discharge. Please note that this facility was on the list that was faxed over by patients family and was approved. During the meeting with family, the family stated that they were in agreement with any facility on that list. The facility has signed a letter of agreement with the insurance agency, [employer]. The patient will follow up with his phys asst, Dr. Hal Hernadez [address] [facility] [address], [place] [address] [phone] on Wednesday, 08/18 at noon. The patient will follow up with his psychiatrist Dr. Herrmann [address], [place] [address] [phone] on Friday 08/17 at 1pm.
== END 2017-08-16 19:44 | DRG 885 ==
LOC: ER 18:13 → GPS 07-29 03:37
PROVIDERS: ADMIT Psychiatry & Neurology Psychiatry; ATTEND Internal Medicine
DX: F29 Unspecified psychosis not due to a substance or known physiological condition (principal); F01.51 Vascular dementia, unspecified severity, with behavioral disturbance; G30.9 Alzheimer's disease, unspecified; F02.81 Dementia in other diseases classified elsewhere, unspecified severity, with behavioral disturbance; E11.9 Type 2 diabetes mellitus without complications; E78.5 Hyperlipidemia, unspecified; I10 Essential (primary) hypertension; Z79.899 Other long term (current) drug therapy; Z86.73 Personal history of transient ischemic attack (TIA), and cerebral infarction without residual deficits
CPT/HCPCS: 36415; 70450-TC; 80048-TC; 80061-TC; 80076-TC; 80305; 81000-TC; 84443-TC; 85025-TC; 87081-TC; 87086-TC; 92507-TC; 92521; 97116-TC; 97530-TC; A4606; A6402; G0480; J1630; J2060; Z7610